=== PATIENT | female | born 1935 | race American Indian/Alaskan Native ===

== ENCOUNTER 2018-04-08 09:18 | Outpatient (CLI) | payer OTHER | END 2018-04-08 09:19 | disposition home or self-care (01) | LOC: C.LAB 09:18 | DX: C73 Malignant neoplasm of thyroid gland (principal); E03.9 Hypothyroidism, unspecified; E11.65 Type 2 diabetes mellitus with hyperglycemia; E78.2 Mixed hyperlipidemia ==

== ENCOUNTER 2018-04-10 09:04 | Outpatient (CLI) | payer OTHER | END 2018-04-10 09:05 | disposition home or self-care (01) | LOC: C.LAB 09:04 | DX: C73 Malignant neoplasm of thyroid gland (principal); E03.9 Hypothyroidism, unspecified; E11.65 Type 2 diabetes mellitus with hyperglycemia; E78.2 Mixed hyperlipidemia ==

== ENCOUNTER 2018-04-20 14:16 | Outpatient (CLI) | payer OTHER | END 2018-04-20 14:17 | disposition home or self-care (01) | LOC: C.USIC 14:16 | DX: C73 Malignant neoplasm of thyroid gland (principal) ==

== ENCOUNTER 2018-05-18 09:31 | Outpatient (CLI) | payer OTHER | END 2018-05-18 09:32 | disposition home or self-care (01) | LOC: C.MAMMO 09:32 | DX: Z12.31 Encounter for screening mammogram for malignant neoplasm of breast (principal) ==

== ENCOUNTER 2018-05-18 09:50 | Outpatient (CLI) | payer OTHER | END 2018-05-18 09:51 | disposition home or self-care (01) | LOC: C.RADIC 09:50 ==

== ENCOUNTER 2018-06-29 10:14 | Outpatient (CLI) | payer OTHER | END 2018-06-29 10:15 | disposition home or self-care (01) | LOC: C.LAB 10:14 ==

== ENCOUNTER 2018-07-06 11:16 | Outpatient (CLI) | payer MEDICARE, OTHER | END 2018-07-06 11:17 | disposition home or self-care (01) | LOC: C.LAB 11:16 | DX: E11.65 Type 2 diabetes mellitus with hyperglycemia (principal); C73 Malignant neoplasm of thyroid gland; E03.9 Hypothyroidism, unspecified; E55.9 Vitamin D deficiency, unspecified ==